=== PATIENT | male | born 1995 | race Caucasian/White ===

== ENCOUNTER 2018-08-18 17:05 | Emergency (ER) | payer OTHER ==
[2018-08-18] MEDS ORDERED: DIPH/PERTUSS(ACELL)/TETANUS VAC/PF 0.5 ML SYR (>=10YO) IM ONE ×2 (17:13→17:28)
[2018-08-18] MEDS ORDERED: LIDOCAINE 1%/EPINEPHRINE INJ 20 ML VIAL INJ ONE (17:14)
--- NOTE | 2018-08-18 17:15 | ER Document Report ---
Addendum entered and electronically signed by KATELYNN BISHOP NP 08/18/18 17:19: Course - Re-evaluation Re-evalutation: 08/18/18 17:18 this note was entered in error - Vital Signs Vital signs: Temp Pulse Resp BP Pulse Ox 98.3 F 08/18/18 17:14 Original Note: ED Medical Screen (RME) - General Stated Complaint: FOOT LACERATION Time Seen by Provider: 08/18/18 17:13 Mode of Arrival: Wheelchair Information source: Patient Notes: Patient reports falling down a flight of stairs just prior to arrival. Patient with large laceration to left side of face with arterial bleeding. Patient denies any loss of consciousness nausea or vomiting. Patient does admit to drinking 10 shots today. Patient is uncertain if a piece of wood may have gotten into the injury. I have greeted and performed a rapid initial assessment of this patient. A comprehensive ED assessment and evaluation of the patient, analysis of test results and completion of the medical decision making process will be conducted by additional ED providers. Physical Exam - Skin Skin irregularity: Laceration - Laceration to left side of face with arterial bleeding
--- NOTE | 2018-08-18 17:30 | ER Document Report ---
ED Medical Screen (RME) - General Chief Complaint: Laceration Stated Complaint: FOOT LACERATION Time Seen by Provider: 08/18/18 17:13 Mode of Arrival: Wheelchair Information source: Patient Notes: Patient reports to drinking alcohol today. Patient states that he stepped on glass cutting his right foot. Patient denies any other injuries. I have greeted and performed a rapid initial assessment of this patient. A comprehensive ED assessment and evaluation of the patient, analysis of test results and completion of the medical decision making process will be conducted by additional ED providers. - Related Data Allergies/Adverse Reactions: No Known Allergies Allergy (Unverified 08/18/18 17:27) Past Medical History - Social History Chew tobacco use (# tins/day): No Frequency of alcohol use: Social Drug Abuse: None Renal/ Medical History: Denies: Hx Peritoneal Dialysis Physical Exam - Vital signs Vitals: Pulse Resp BP Pulse Ox 78 13 125/80 95 08/18/18 17:06 08/18/18 17:06 08/18/18 17:06 08/18/18 17:06 - General General appearance: Alert Notes: Patient with dried blood to right foot, patient denies any tenderness to the foot, suspect laceration to the plantar surface of the right second toe Course - Vital Signs Vital signs: Temp Pulse Resp BP Pulse Ox 98.3 F 78 13 125/80 95 08/18/18 17:14 08/18/18 17:06 08/18/18 17:06 08/18/18 17:06 08/18/18 17:06
--- NOTE | 2018-08-18 18:05 | RADIOLOGY REPORT (SQ) ---
EXAM DESCRIPTION: FOOT RIGHT COMPLETE COMPLETED DATE/TIME: 08/18/2018 5:51 pm REASON FOR STUDY: foot lac, stepped on glass COMPARISON: None. NUMBER OF VIEWS: Three views. TECHNIQUE: AP, lateral and oblique radiographic images acquired of the right foot. LIMITATIONS: None. FINDINGS: MINERALIZATION: Normal. BONES: No acute fracture or dislocation. No worrisome bone lesions. JOINTS: No effusions. SOFT TISSUES: Mild soft tissue swelling forefoot. No radiopaque foreign body or soft tissue gas. OTHER: No other significant finding. IMPRESSION: 1. No acute fracture or dislocation the right foot. 2. Mild soft tissue swelling of the forefoot. No radiopaque foreign body. TECHNICAL DOCUMENTATION: JOB ID: [id number] [email or web address]- All Rights Reserved Reading location - IP/workstation name: [email or web address]
--- NOTE | 2018-08-18 18:55 | ER Document Report ---
ED Wound - General Chief Complaint: Laceration Stated Complaint: FOOT LACERATION Time Seen by Provider: 08/18/18 17:13 Mode of Arrival: Wheelchair Notes: Patient is a 23-year-old male who presents to the emergency department with a chief complaint of a laceration to his right foot. He states that he stepped on a piece of glass. He did this around 1600 this evening. He reports that he has been drinking alcohol. He received his tetanus vaccine in triage. States it has been bleeding. Laceration is on his right foot between his third and fourth webspace. He does not take any medications. He does not have any past medical history. - Related Data Allergies/Adverse Reactions: No Known Allergies Allergy (Unverified 08/18/18 17:27) Past Medical History - General Information source: Patient - Social History Smoking Status: Current Some Day Smoker Chew tobacco use (# tins/day): No Frequency of alcohol use: Social Drug Abuse: None Family History: Reviewed & Not Pertinent Patient has suicidal ideation: No Patient has homicidal ideation: No Renal/ Medical History: Denies: Hx Peritoneal Dialysis Review of Systems - Review of Systems Notes: REVIEW OF SYSTEMS: CONSTITUTIONAL : Denies recent illness. Denies recent unintentional weight loss. Denies fever, chills, or sweats. EENT: Denies eye, ear, throat, or mouth pain, discharge, or symptoms. Denies nasal or sinus congestion. CARDIOVASCULAR: Denies chest pain. RESPIRATORY: Denies shortness of breath, cough, congestion, difficulty breathing, or wheezing. GASTROINTESTINAL: Denies nausea, vomiting, and diarrhea. Denies abdominal pain. Denies constipation. GENITOURINARY: Denies difficulty urinating, burning, blood in urine, urgency or frequency. MUSCULOSKELETAL: Denies neck and back pain. Denies joint pain or swelling. SKIN: See HPI HEMATOLOGIC : Denies easy bruising or bleeding. LYMPHATIC: Denies swollen, painful, enlarged glands. NEUROLOGICAL: Denies no numbness or tingling denies weakness. Denies headache. Denies altered mental status. Denies alteration in speech. PSYCHIATRIC: Denies stress, anxiety, alteration in sleep patterns, or depression. All other systems reviewed and negative. Physical Exam - Vital signs Vitals: Pulse Resp BP Pulse Ox 78 13 125/80 95 08/18/18 17:06 08/18/18 17:06 08/18/18 17:06 08/18/18 17:06 - Notes Notes: PHYSICAL EXAMINATION: GENERAL: Appears well, healthy, well-nourished, no acute distress. HEAD: Normocephalic, atraumatic. EYES: PERRL, conjunctiva normal, all extraocular movements intact, sclera nonicteric ENT: Moist mucous membranes. NECK: Supple, no noticeable swelling, redness, rash. Normal range of motion. LUNGS: Equal breath sounds bilaterally and clear to auscultation. No wheezes rales or rhonchi. CARDIOVASCULAR: S1-S2, regular rate, regular rhythm. Radial pulses 2+, normal. ABDOMEN: Normoactive bowel sounds. Soft, nontender, no guarding, no rebound tenderness, and no masses palpated. EXTREMITIES: Normal strength and range of motion, no pitting or edema. No cyanosis. NEUROLOGICAL: Moves all extremities upon command. Strength 5/5 in all extremities. PSYCH: Normal mood, normal affect. Noticeably intoxicated, but cooperative and calm. SKIN: Warm, dry. No rash, lesions, ulcerations noted. Normal skin turgor. Less than 1 cm laceration noted to the webspace between digits 3 and 4 on the right foot. Very superficial 1/2 centimeter laceration noted to fifth digit. No bleeding noted. Course - Re-evaluation Re-evalutation: 08/18/18 18:59 Patient's lacerations or not repairable at this time. No cellulitis noted. X- ray is normal. His lacerations were cleaned and irrigated with water and [place]. Patient will apply bacitracin ointment or triple anabolic ointment to laceration. He will follow-up with his primary care provider as needed. Verbal discharge instructions were given to the patient. They verbalized understanding. They are stable for discharge. - Vital Signs Vital signs: Temp Pulse Resp BP Pulse Ox 98.3 F 78 13 125/80 95 08/18/18 17:14 08/18/18 17:06 08/18/18 17:06 08/18/18 17:06 08/18/18 17:06 Discharge - Discharge Clinical Impression: Foot laceration Qualifiers: Encounter type: initial encounter Laterality: right Qualified Code(s): S91.311A - Laceration without foreign body, right foot, initial encounter Condition: Stable Disposition: HOME, SELF-CARE Instructions: Antibiotic Ointment Protection (OM), Soap Cleansing (OM), Tetanus Immunization Given ([facility]) Additional Instructions: You were seen today in the emergency department after stepping on a piece of glass. Your x-ray is normal. The cut you have on your foot is not repairable. You are being prescribed antibiotics. Please take all your antibiotics as prescribed. Please keep your foot wrapped. Apply antibiotic ointment twice a day. Please follow-up with your regular doctor, urgent care, or the emergency department if you feel you at your foot is getting worse. Prescriptions: Cephalexin Monohydrate [Keflex 500 mg Capsule] 500 mg PO Q6H 5 Days #20 capsule
[2018-08-18 19:07] VITALS: BP 126/78
== END 2018-08-18 19:07 | disposition home or self-care (01) ==
LOC: ER 17:05
DX: S91.311A Laceration without foreign body, right foot, initial encounter (principal); W25.XXXA Contact with sharp glass, initial encounter; F17.200 Nicotine dependence, unspecified, uncomplicated; Z23 Encounter for immunization
CPT/HCPCS: 90471; 90715; 99282